=== PATIENT | female | born 1980 | race Hispanic/Latino ===

== ENCOUNTER 2017-11-24 13:17 | Outpatient (CLI) | payer OTHER ==
--- NOTE | 2017-11-24 15:59 | CT ---
CT NECK WITH CONTRAST: Date: 11/24/17 Multiple axial tomograms obtained through the neck with IV enhancement. INDICATIONS: Thyroid nodules. Hypercalcemia. Hyperparathyroidism. Correlation made to thyroid ultrasound of 06/13/15 which revealed small bilateral thyroid nodules. FINDINGS: Parotid glands and submandibular glands appear normal and symmetric. Thyroid is heterogeneous with evidence of multiple bilateral small low density nodules. These nodules are poorly defined by CT. At least one nodule in the right lobe measures 7-8 mm. No definite parathyroid mass or nodule is seen, although this is an inadequate study for parathyroid adenoma. Parathyroid adenoma protocol includes a pre and post CT of the neck to assess parathyroid no dules that enhance on postcontrast study. These nodules cannot be adequately from the thyro id with contrast only exam. Nasopharynx unremarkable. Oropharynx unremarkable. Hypopharynx and larynx appear unremarkable. Paraph aryngeal and retropharyngeal space appear unremarkable. Carotid space unremarkable. Nonspecific lymph nodes are seen bilaterally. There are nonspecific Level I submandibular nodes measu ring up to 1.0 cm. There are numerous Level II cervical chain lymph nodes. The largest is seen on the left measuring 1.5 cm. There are numerous IIB lymph nodes bilaterally. Nonspecific Level III lymph n ode on the left posteriorly measuring 8.0 mm. Numerous Level V lymph nodes seen posteriorly bilateral ly. Paranasal sinuses are clear. IMPRESSION: 1. Thyroid is mildly enlarged and heterogeneous. Small hypodense foci suggests numerous small nodule s which are poorly defined by CT. Parathyroid mass or adenoma is not confirmed, although parathyroid adenoma may be obscured on this with contrast only exam, as discussed above. If there is concern of p arathyroid adenoma, recommend parathyroid sestamibi scan. If that exam shows evidence of adenoma, a f ollow-up CT neck with and without contrast could be performed for further localization. 2. Nonspecific cervical chain lymph nodes as described above. POS: [facility]
== END 2017-11-24 13:18 | disposition home or self-care (01) ==
LOC: SCSCT 13:17
PROVIDERS: ATTEND Family Medicine
DX: E21.3 Hyperparathyroidism, unspecified (principal); E83.52 Hypercalcemia; E04.9 Nontoxic goiter, unspecified
CPT/HCPCS: 70491